=== PATIENT | female | born 1950 | race Caucasian/White ===

== ENCOUNTER 2017-10-23 11:42 | Emergency (ER) | payer OTHER, MEDICARE ==
[~2017-10-23] VITALS: Ht 162.6 cm; Wt 65.8 kg
[2017-10-23 11:47] VITALS: Ht 162.6 cm; Wt 65.8 kg
[2017-10-23 13:01] VITALS: BP 131/60
== END 2017-10-23 14:06 | disposition home or self-care (01) ==
LOC: ED 11:42
DX: S46.811A Strain of other muscles, fascia and tendons at shoulder and upper arm level, right arm, initial encounter (principal); S93.491A Sprain of other ligament of right ankle, initial encounter; R07.81 Pleurodynia; W01.0XXA Fall on same level from slipping, tripping and stumbling without subsequent striking against object, initial encounter; Y93.89 Activity, other specified; Y92.89 Other specified places as the place of occurrence of the external cause; Y99.8 Other external cause status
CPT/HCPCS: J3010; Q0162